=== PATIENT | female | born 1980 | race Caucasian/White ===

== ENCOUNTER 2017-08-04 12:12 | Emergency (ER) | payer SELFPAY ==
[~2017-08-04] VITALS: Ht 167.6 cm; Wt 60.0 kg
[2017-08-04 12:33] VITALS: BP 143/95; PULSE 113; RESP 19; TEMP 97.4; O2SAT 100
[2017-08-04] MEDS ORDERED: SODIUM CHLOR 0.9% 1000 ML INJ 1,000 ML IV SCH (14:11)
[2017-08-04] MEDS ORDERED: SODIUM CHLORIDE 0.9% FLUSH 10 ML FLUSH IV FLUSH PRN (14:15)
[2017-08-04] MEDS ORDERED: KETOROLAC TROMETHAMINE 30 MG/ML (IVP) VIAL IVP ONE (14:15)
[2017-08-04 14:53] LABS: AUTOMATED NEUTROPHIL # 18.8 TH/MM3 (1.8-7.7); BASOPHIL # 0.1 TH/MM3 (0-0.2); BASOPHIL % 0.6 % (0.0-2.0); EOSINOPHIL % 0.1 % (0.0-4.0); HEMATOCRIT 45.6 % (35.0-46.0); HEMOGLOBIN 15.2 GM/DL (11.6-15.3); LYMPH % 1.3 % (9.0-44.0); LYMPHOCYTE # 0.3 TH/MM3 (1.0-4.8); MEAN CELL VOLUME 86.9 FL (80.0-100.0); MEAN CORPUSCULAR HEMOGLOBIN 28.9 PG (27.0-34.0); MEAN CORPUSCULAR HGB CONC 33.3 % (32.0-36.0); MEAN PLATELET VOLUME 8.7 FL (7.0-11.0); MONO % 3.5 % (0.0-8.0); MONOCYTE # 0.7 TH/MM3 (0-0.9); NEUT % 94.5 % (16.0-70.0); PLATELET COUNT 243 TH/MM3 (150-450); RED BLOOD COUNT 5.25 MIL/MM3 (4.00-5.30); RED CELL DISTRIBUTION WIDTH 15.3 % (11.6-17.2); WHITE BLOOD COUNT 19.9 TH/MM3 (4.0-11.0)
[2017-08-04 14:59] LABS: AMORPHOUS SEDIMENT, URINE RARE; BACTERIA, URINE FEW /hpf; BILIRUBIN, URINE NEG (NEG); BLOOD, URINE MOD (NEG); GLUCOSE,URINE NEG (NEG); HYALINE CAST, URINE 7 /lpf (RARE); KETONE, URINE NEG (NEG); MUCUS URINE FEW /lpf (OCC); NITRITE,URINE NEG (NEG); PH, URINE 5.5 (5.0-8.5); SQUAMOUS EPITHELIAL CELL URINE 42 /hpf (0-5); TRANSITIONAL EPI CELLS, URINE 2 /hpf; URINE COLOR YELLOW (YELLW/STRAW); URINE LEUKOCYTE ESTERASE LARGE (NEG)
[2017-08-04 15:12] LABS: ALT (GPT) 128 U/L (10-53); AST (GOT) 186 U/L (15-37); BICARBONATE 26.6 MEQ/L (21.0-32.0); BLOOD UREA NITROGEN 18 MG/DL (7-18); CALCIUM 9.7 MG/DL (8.5-10.1); CHLORIDE 103 MEQ/L (98-107); CREATININE 1.74 MG/DL (0.50-1.00); GLOMERULAR FILTRATION RATE 33 ML/MIN (>89); GLUCOSE,RANDOM 112 MG/DL (74-106); SODIUM (NA) 138 MEQ/L (136-145)
[2017-08-04 15:13] LABS: ALKALINE PHOSPHATASE 133 U/L (45-117); TOTAL PROTEIN 7.8 GM/DL (6.4-8.2)
--- NOTE | 2017-08-04 15:29 | PD ---
HPI Chief Complaint: Flank/Kidney Pain Time Seen by Provider: 14:02 Travel History International Travel<30 days: No Contact w/Intl Traveler<30days: No Traveled to known affect area: No History of Present Illness HPI 37-year-old female presents to the emergency department with complaint of left flank pain 3 days. Says her pain radiates down her leg, upper back and around her lower back. Denies fever, vomiting. Reports chills. Denies dysuria, hematuria, change in stool. Denies abnormal vaginal discharge, odor. Reports history of kidney infection. Denies history of kidney stones. Last menstrual period July 16. No contraception use. History of tubal ligation. Rates pain 8/10. Fluctuates in intensity. Describes as stabbing sensation. Has taken ibuprofen with good relief. Pain is worse with movement. Better at rest. No primary care provider. No known allergies. History of hypertension and does not take medications. Has no other medical complaints. No other modifying factors or associated signs and symptoms. PFSH Past Medical History Hypertension: Yes ?: Not LMP: 07/18/17 Past Surgical History Section: Yes Social History Alcohol Use: Yes Tobacco Use: Yes Substance Use: No Allergies-Medications (Allergen,Severity, Reaction): Coded Allergies: No Known Allergies (Unverified , 08/04/17) Reported Meds & Prescriptions Reported Meds & Active Scripts Active Flomax (Tamsulosin HCl) 0.4 Mg Cap 0.4 Mg PO HS 4 Days Zofran Odt (Ondansetron Odt) 4 Mg Tab 4 Mg SL Q8HR PRN Ketorolac (Ketorolac Tromethamine) 10 Mg Tab 10 Mg PO Q6HR PRN [place] (Hydrocodone-Acetaminophen) 5 Mg-325 Mg Tab 1 Tab PO Q4H PRN Review of Systems Except as stated in HPI: all other systems reviewed are Neg Physical Exam Narrative GENERAL: Well-nourished, well-developed female patient, in no acute distress SKIN: Warm and dry. No rash. HEAD: Atraumatic. Normocephalic. EYES: Pupils equal and round. No scleral icterus. No injection or drainage. ENT: Mucosa pink and moist. NECK: Trachea midline. CARDIOVASCULAR: Regular rate and rhythm. No murmur appreciated. RESPIRATORY: No accessory muscle use. Clear to auscultation. Breath sounds equal bilaterally. GASTROINTESTINAL: Abdomen soft, tenderness to left flank, nondistended. Hepatic and splenic margins not palpable. Bowel sounds are active 4 quadrants. Bladder nontender and nondistended. MUSCULOSKELETAL: No obvious deformities. No clubbing. No cyanosis. No edema. BACK: Left CVA tenderness NEUROLOGICAL: Awake and alert. Oriented 3. No obvious cranial nerve deficits. Motor grossly within normal limits. Normal speech. Moves all extremities. 5/5 strength to all extremities. PSYCHIATRIC: Appropriate mood and affect; insight and judgment normal. Data Data Last Documented VS Vital Signs Date Time Temp Pulse Resp B/P (MAP) Pulse Ox O2 Delivery O2 Flow Rate FiO2 08/04/17 12:33 97.4 113 19 143/95 (111) 100 Orders Orders Urinalysis - C+S If Indicated (08/04/17 12:36) Ed Urine Pregnancytest Poc (08/04/17 12:36) Complete Blood Count With Diff (08/04/17 14:11) Comprehensive Metabolic Panel (08/04/17 14:11) Lipase (08/04/17 14:11) Ct Abd/Pel W/O Iv Contrast (08/04/17 14:11) Iv Access Insert/Monitor (08/04/17 14:11) Sodium Chlor 0.9% 1000 Ml Inj (Ns 1000 M (08/04/17 14:11) Sodium Chloride 0.9% Flush (Ns Flush) (08/04/17 14:15) Ketorolac Inj (Toradol Inj) (08/04/17 14:15) Urine Culture (08/04/17 14:30) Ceftriaxone Inj (Rocephin Inj) (08/04/17 16:00) Sodium Chlor 0.9% 1000 Ml Inj (Ns 1000 M (08/04/17 17:00) Acetamin-Hydrocod 325-5 Mg ([place] 5-325 (08/04/17 17:00) Tamsulosin (Flomax) (08/04/17 17:00) Ed Discharge Order (08/04/17 16:56) Labs Laboratory Tests Test 08/04/17 14:25 08/04/17 14:30 White Blood Count 19.9 TH/MM3 Red Blood Count 5.25 MIL/MM3 Hemoglobin 15.2 GM/DL Hematocrit 45.6 % Mean Corpuscular Volume 86.9 FL Mean Corpuscular Hemoglobin 28.9 PG Mean Corpuscular Hemoglobin Concent 33.3 % Red Cell Distribution Width 15.3 % Platelet Count 243 TH/MM3 Mean Platelet Volume 8.7 FL Neutrophils (%) (Auto) 94.5 % Lymphocytes (%) (Auto) 1.3 % Monocytes (%) (Auto) 3.5 % Eosinophils (%) (Auto) 0.1 % Basophils (%) (Auto) 0.6 % Neutrophils # (Auto) 18.8 TH/MM3 Lymphocytes # (Auto) 0.3 TH/MM3 Monocytes # (Auto) 0.7 TH/MM3 Eosinophils # (Auto) 0.0 TH/MM3 Basophils # (Auto) 0.1 TH/MM3 CBC Comment DIFF FINAL Differential Comment Blood Urea Nitrogen 18 MG/DL Creatinine 1.74 MG/DL Random Glucose 112 MG/DL Total Protein 7.8 GM/DL Albumin 4.0 GM/DL Calcium Level 9.7 MG/DL Alkaline Phosphatase 133 U/L Aspartate Amino Transf (AST/SGOT) 186 U/L Alanine Aminotransferase (ALT/SGPT) 128 U/L Total Bilirubin 1.0 MG/DL Sodium Level 138 MEQ/L Potassium Level 3.5 MEQ/L Chloride Level 103 MEQ/L Carbon Dioxide Level 26.6 MEQ/L Anion Gap 8 MEQ/L Estimat Glomerular Filtration Rate 33 ML/MIN Lipase 200 U/L Urine Color YELLOW Urine Turbidity CLOUDY Urine pH 5.5 Urine Specific [place] 1.015 Urine Protein 100 mg/dL Urine Glucose (UA) NEG mg/dL Urine Ketones NEG mg/dL Urine Occult Blood MOD Urine Nitrite NEG Urine Bilirubin NEG Urine Urobilinogen LESS THAN 2.0 MG/DL Urine Leukocyte Esterase LARGE Urine RBC 31 /hpf Urine WBC /hpf Urine Squamous Epithelial Cells 42 /hpf Urine Transitional Epithelial Cells 2 /hpf Urine Amorphous Sediment RARE Urine Bacteria FEW /hpf Urine Hyaline Casts 7 /lpf Urine Mucus FEW /lpf Microscopic Urinalysis Comment CULTURE INDICATED MDM Medical Decision Making Medical Screen Exam Complete: Yes Emergency Medical Condition: Yes Medical Record Reviewed: Yes Differential Diagnosis Pyelonephritis, nephrolithiasis, pancreatitis, flank pain, muscle strain Narrative Course 37-year-old female with left flank pain. Positive left CVA tenderness on exam. CBC, CMP, lipase, urinalysis, UPT, IV, normal saline bolus, Toradol ordered. WBC 19.9. Otherwise CBC unremarkable. Creatinine 1.74. GFR 33. AST 186. ALT 128. Discussed lab findings and elevated liver enzymes with the patient. Urinalysis with signs of infection. Rocephin 1 g ordered. 1638: CT abdomen/pelvis conclude: Abdomen/Pelvis CT 08/04/17 1411 Signed Impressions: Service Date/Time: July 15:33 - CONCLUSION: 1. Acute obstructive uropathy of the left mid ureter at the L3-4 level secondary to a 6 mm calcified calculus resulting in moderate ureteral pelvocaliectasis. 2. Multiple calcified nonobstructing sub-5 mm bilateral renal calculi. 3. 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 4. Hepatomegaly. Jose Craig MD Patient provided a copy of the CT report. Discussed all findings with Dr. Poole, my attending physician, and he agrees with patient discharge and outpatient follow-up. [place], Flomax, second normal saline bolus ordered and administered in the ER. [place], Flomax, Toradol, Keflex, Zofran prescribed for home. Instructed patient to follow-up with urology as needed. Instructed patient to follow up with primary care provider. Patient verbalizes understanding and agreement with treatment plan. Patient is medically cleared and stable for discharge. Discussed reasons to return to the emergency department. Patient agrees with treatment plan. The patients vital signs are stable and the patient is stable for outpatient follow-up and treatment. Patient discharged home, stable and in no acute distress. Diagnosis Primary Impression: Kidney stones Additional Impression: UTI (urinary tract infection) Qualified Codes: N39.0 - Urinary tract infection, site not specified; R31.9 - Hematuria, unspecified Referrals: [facility] Primary Care Physician Urologist Patient Instructions: General Instructions, Kidney Stones (ED), Urinary Tract Infection in Women (ED) Departure Forms: Tests/Procedures, Work Release Enter return to work date: Aug 08, 2017 Additional Instructions: Percocet and Toradol as prescribed and as needed for pain Flomax as directed and as needed urinary symptoms Antibiotics as prescribed for urinary tract infection Drink plenty of fluids Follow-up with primary care provider Follow-up with urologist as needed Return to the emergency department immediately with worsening of symptoms Med/Other Pt SpecificInfo: Prescription(s) given Scripts Tamsulosin (Flomax) 0.4 Mg Cap 0.4 MG PO HS for Urinary Symptom Managemen for 4 Days, CAP 0 Refills Prov: Martita Benson 08/04/17 Ondansetron Odt (Zofran Odt) 4 Mg Tab 4 MG SL Q8HR Y for Nausea/Vomiting, #6 TAB 0 Refills Prov: Martita Benson 08/04/17 Ketorolac (Ketorolac) 10 Mg Tab 10 MG PO Q6HR Y for PAIN, #10 TAB 0 Refills Prov: Mratita Benson 08/04/17 Hydrocodone-Acetaminophen ([place]) 5 Mg-325 Mg Tab 1 TAB PO Q4H Y for PAIN, #10 TAB 0 Refills Prov: Martita Benson 08/04/17 Disposition: 01 DISCHARGE HOME Condition: Stable Martita Benson Aug 04, 2017 15:29
[2017-08-04] MEDS ORDERED: cefTRIAXone INJ 1,000 MG in SODIUM CHLORIDE 0.9% INJ 100 ML IV ONE (16:00)
--- NOTE | 2017-08-04 16:00 | RADRPT ---
EXAM DATE/TIME: 08/04/2017 15:33 [place] COMPARISON: No previous studies available for comparison. INDICATIONS : Left flank pain. ORAL CONTRAST: No oral contrast ingested. RADIATION DOSE: 6.88 CTDIvol (mGy) MEDICAL HISTORY : Renal calculi. SURGICAL HISTORY : Left renal stent. ENCOUNTER: Initial ACUITY: 3 days PAIN SCALE: 8/10 LOCATION: Left flank TECHNIQUE: Volumetric scanning of the abdomen and pelvis was performed. Using automated exposure control and ad justment of the mA and/or kV according to patient size, radiation dose was kept as low as reasonably achievable to obtain optimal diagnostic quality images. DICOM format image data is available electro nically for review and comparison. FINDINGS: LOWER LUNGS: The visualized lower lungs are clear. LIVER: Hepatomegaly is noted. Homogeneous density without lesion. There is no dilation of the biliary tree. No calcified gallstones. SPLEEN: Normal size without lesion. PANCREAS: Within normal limits. KIDNEYS: There is acute obstructive uropathy of the left mid ureter at the L3-4 level secondary to a 6 mm calc ified calculus resulting in moderate ureteral pelvocaliectasis on the left. Multiple tiny calcified n onobstructing bilateral renal calculi are also noted and measure less than 5 mm each. There is a fat containing right renal mass measuring 1.5 cm consistent with angiomyolipoma. ADRENAL GLANDS: Within normal limits. VASCULAR: There is no aortic aneurysm. BOWEL/MESENTERY: The stomach, small bowel, and colon demonstrate no acute abnormality. There is no free intraperitone al air or fluid. ABDOMINAL WALL: Within normal limits. RETROPERITONEUM: There is no lymphadenopathy. BLADDER: No wall thickening or mass. REPRODUCTIVE: Within normal limits. INGUINAL: There is no lymphadenopathy or hernia. MUSCULOSKELETAL: Within normal limits for patient age. CONCLUSION: 1. Acute obstructive uropathy of the left mid ureter at the L3-4 level secondary to a 6 mm calcified calculus resulting in moderate ureteral pelvocaliectasis. 2. Multiple calcified nonobstructing sub-5 mm bilateral renal calculi. 3. 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 4. Hepatomegaly. Jose Craig MD on August 04, 2017 at 15:52 Board Certified Radiologist. This report was verified electronically.
[2017-08-04] MEDS ORDERED: TAMS5CAP PO ×2 (16:53→16:56)
[2017-08-04] MEDS ORDERED: KETO10 PO (16:53)
[2017-08-04] MEDS ORDERED: ZOFR4TAB3 SL (16:53)
[2017-08-04] MEDS ORDERED: NORC5TAB PO (16:53)
[2017-08-04] MEDS ORDERED: ACETAMINOPHEN/HYDROcodone 325 MG/5 MG TAB PO ONE (17:00)
[2017-08-04] MEDS ORDERED: TAMSULOSIN HCL 0.4 MG CAP PO ONE (17:00)
[2017-08-04] MEDS ORDERED: SODIUM CHLOR 0.9% 1000 ML INJ 1,000 ML IV ONE (17:00)
== END 2017-08-04 18:55 | disposition home or self-care (01) ==
LOC: NEPD 12:12
DX: N20.0 Calculus of kidney (principal); N39.0 Urinary tract infection, site not specified; N28.89 Other specified disorders of kidney and ureter; R16.0 Hepatomegaly, not elsewhere classified; Z72.0 Tobacco use
CPT/HCPCS: 74176; 80053; 81001; 83690; 84703; 85025; 87077; 87086; 87186; 96361; 96365; 96366; 96375; 99284; J0696; J1885; J7030